=== PATIENT | female | born 1995 | race African-American/Black ===

== ENCOUNTER 2018-12-22 15:31 | Emergency (ER) | payer SELFPAY ==
[~2018-12-22] VITALS: Ht 165.1 cm; Wt 87.8 kg
[2018-12-22 15:41] VITALS: BP 106/60
== END 2018-12-22 16:44 | disposition home or self-care (01) ==
LOC: ER 15:46
DX: E86.0 Dehydration (principal)
CPT/HCPCS: 81002; 81025; 93005